=== PATIENT | female | born 1965 | race Caucasian/White ===

== ENCOUNTER 2023-09-12 18:11 | Outpatient (CLI) | payer BC, SELFPAY | END 2023-09-12 18:12 | disposition home or self-care (01) | LOC: AMB 09-16 19:18 | PROVIDERS: Visit Provider Student in an Organized Health Care Education/Training Program | DX: S71.102A Unspecified open wound, left thigh, initial encounter (principal) | CPT/HCPCS: A0425; A0427 ==

== ENCOUNTER 2024-08-05 00:14 | Emergency (ER) | payer BC, SELFPAY ==
[2024-08-05 00:20] VITALS: BP 154/95; PULSE 64; RESP 16; TEMP 36.4; O2SAT 95; BMI 40.5
--- NOTE | 2024-08-05 00:56 | ED.GENADULT ---
HPI - General Adult General Chief complaint: Laceration/Wound Stated complaint: Cut right index finger on dermaplane Time Seen by Provider: 08/05/24 00:22 Source: patient Mode of arrival: ambulatory Limitations: no limitations History of Present Illness HPI narrative: 59-year-old female presents to the emergency department with a cut to her right index finger. She was using a dermal plane which is a small cosmetic razor used to remove fine facial hair prior to bed. She reports that she pressed down to apply pressure on the blade not realizing that it was sharp on this edge as well, causing a cut to her right index finger on the medial edge of the D IP joint. Active bleeding could not be stopped with pressure. Does not take any anticoagulants. Reports no loss of sensation or difficulty moving the rest of the hand, no other injuries. Allergies, medications reviewed. No contraindications or red flags. No intoxication tonight. Related Data Home Medications ?Medication ?Instructions ?Recorded ?Confirmed amantadine HCl 100 mg tablet 100 mg PO BID 08/05/24 08/05/24 estradiol 0.01% (0.1 mg/gram) 2 g vaginal 2XW 08/05/24 08/05/24 vaginal cream melatonin 3 mg tablet 6 mg PO QPM insomnia 08/05/24 08/05/24 omeprazole 20 mg capsule,delayed 20 mg PO QAM 08/05/24 08/05/24 release rosuvastatin 10 mg tablet 10 mg PO QPM 08/05/24 08/05/24 trazodone 50 mg tablet 50 mg PO QPM 08/05/24 08/05/24 trospium 20 mg tablet 20 mg PO BID 08/05/24 08/05/24 Allergies Allergy/AdvReac Type Severity Reaction Status Date / Time IBIG Allergy Intermediate Anaphylaxis Uncoded 08/05/24 00:26 Exam Const: Vital Signs, click to edit/add: Vital Signs - 24 hr 08/05/24 00:20 Temperature 97.6 F Pulse Rate [Left P ulse Oximeter] 64 Respiratory Rate 16 Blood Pressure [Ri ght Upper Arm] 154/95 H Pulse Oximetry 95 Oxygen Delivery Me thod Room Air Documenting provider has reviewed patient's vital signs: yes Common normals: no apparent distress General appearance: cooperative and well kempt HENMT: Common normals: normocephalic Head and scalp: normocephalic Face and sinus: normal facial exam Eye: General eye: normal appearance of both eyes Resp: Common normals: normal respiratory effort Effort & inspection: able to speak in complete sentences Psych: Appearance: well kempt Attitude: engaged Activity/motor behavior: appropriate eye contact Insight: insight good Judgement: judgment good Skin: Narrative: 1.5 cm curved laceration along the medial D IP joint, active bleeding, seemingly venous noted. Has normal flexion and extension of the finger. Normal range of motion in hand and wrist. Opposite hand appears grossly unaffected. Course Course ED Course: Counseled patient on the laceration. It keeps wanting to gape open further with all finger movement. It is unlikely to be able to be held together with Steri-Strips or Dermabond. Because of this I do recommend suture. Verbal consent obtained. Procedure: Laceration repair: Digital block used with 2% lidocaine without epinephrine to each base of the index finger on the right side, medial and lateral. 1 mL was injected in each and then 1 mL injected in the tip of the finger for with good anesthesia. Area was cleansed with alcohol wipe, no signs of foreign body noted. Four simple interrupted 4-0 Monocryl sutures were placed with excellent wound reapproximation and hemostasis. Remainder of hand was then well cleaned, no further signs of bleeding. Antibiotic ointment large Band-Aid applied. Wound care discussed. Try to leave the current Band-Aid on for the next 8 hours, then may removed gently wash and reapply clean antibiotic ointment and Band-Aid at least every 24 hours. Infection is unlikely but if this occurs, signs and symptoms were reviewed. Written instructions provided. Please have it re-evaluated in clinic if this occurs. Needs to make a clinic appointment in 7 days to have the stitches removed. No antibiotics needed. Confirmed tetanus up-to-date. Vital Signs Vital signs: Initial Vital Signs Temperature 97.6 F 08/05/24 00:20 Temperature Source Temporal Artery Scan 08/05/24 00:20 Pulse Rate 64 08/05/24 00:20 Pulse Rhythm Regular 08/05/24 00:20 Respiratory Rate 16 08/05/24 00:20 Blood Pressure 154/95 H 08/05/24 00:20 Blood Pressure Mean 114 H 08/05/24 00:20 Blood Pressure Position Sitting 08/05/24 00:20 Pulse Oximetry 95 08/05/24 00:20 Oxygen Delivery Method Room Air 08/05/24 00:20 Vital Signs Temperature 97.6 F 08/05/24 00:20 Pulse Rate 64 08/05/24 00:20 Respiratory Rate 16 08/05/24 00:20 Blood Pressure 154/95 H 08/05/24 00:20 Pulse Oximetry 95 08/05/24 00:20 Oxygen Delivery Method Room Air 08/05/24 00:20 Temperature 97.6 F 08/05/24 00:20 Pulse Rate 64 08/05/24 00:20 Respiratory Rate 16 08/05/24 00:20 Blood Pressure 154/95 H 08/05/24 00:20 Pulse Oximetry 95 08/05/24 00:20 Oxygen Delivery Method Room Air 08/05/24 00:20 Medications Administered Medications: Discontinued Medications Generic Name Dose Route Start Last Admin Trade Name Freq PRN Reason Stop Dose Admin Lidocaine HCl 20 ml 08/05/24 00:32 08/05/24 01:00 Lidocaine Hcl 2 % Multidose 20 Ml Vial INJECTION 08/05/24 00:33 20 ml ONCE ONE Administration Discharge Plan Discharge Clinical Impression: Laceration Patient Disposition: Home, Self-Care Condition: Improved Instructions: Laceration (ED) Additional Instructions: For stitches were placed in your right index finger. These are the type that will need to be removed, preferably in about 7 to 9 days. Please keep the dressing that was applied on for at least the rest of the night. In 8 hours, you may remove the bandage and gently wash if needed. Please try to keep covered with antibiotic ointment and a Band-Aid as much as possible. The antibiotic ointment will help keep the stitches and skin soft so that the suture is also easier to remove. Please make an appointment to have the stitches removed in 7 days. Infection is unlikely but if it does occur it would typically be associated with redness, increased swelling, severe throbbing pain, fevers and red streaking up the arm. You should be re-evaluated in the clinic if this occurs. It is okay to use Tylenol 1000 mg every 6 hours and or ibuprofen 600 mg every 6 hours as needed for discomfort. The numbing medicine will wear off in probably about 15-30 minutes. Activity Level: Activity as Tolerated Discharge Diet: Regular Prescriptions: No Action amantadine HCl 100 mg tablet 100 mg PO BID trazodone 50 mg tablet 50 mg PO QPM melatonin 3 mg tablet 6 mg PO QPM omeprazole 20 mg capsule,delayed release(DR/EC) 20 mg PO QAM estradiol 0.01 % (0.1 mg/gram) cream 2 g vaginal 2XW rosuvastatin 10 mg tablet 10 mg PO QPM trospium 20 mg tablet 20 mg PO BID Follow Up/Referrals: Provider,Not a Local [Primary Care Provider, Family Practice] Stand Alone Forms: [facility] Info Instructions
[2024-08-05] MEDS: lidocaine HCL 2 % MULTIDOSE 20 ML VIAL INJECTION (01:00)
== END 2024-08-05 01:15 | disposition home or self-care (01) ==
LOC: ED 01:02
PROVIDERS: Emergency Provider Family Medicine
DX: S61.210A Laceration without foreign body of right index finger without damage to nail, initial encounter (principal); W26.8XXA Contact with other sharp object(s), not elsewhere classified, initial encounter
CPT/HCPCS: 12001; 99283